=== PATIENT | male | born 1935 | race Caucasian/White ===

== ENCOUNTER 2018-10-27 22:25 | Emergency (ER) | payer MEDICARE, OTHER ==
[2018-10-27 22:30] VITALS: BP 121/95
--- NOTE | 2018-10-27 22:56 | EDM.PDOC ---
ED HPI GENERAL MEDICAL PROBLEM - General Chief Complaint: Genitourinary Problem Stated Complaint: TROUBLE URINATING Time Seen by Provider: 10/27/18 22:55 Source of Information: Reports: Patient History Limitations: Reports: No Limitations - History of Present Illness INITIAL COMMENTS - FREE TEXT/NARRATIVE: been urinating red today. denies dysuria. - Related Data Allergies Allergy/AdvReac Type Severity Reaction Status Date / Time aspirin Allergy Bleeding Verified 10/27/18 22:53 celecoxib Allergy Nausea and Verified 10/27/18 22:53 Vomiting meperidine HCl [From Demerol] Allergy Anaphylactic Verified 10/27/18 22:53 Shock oxycodone Allergy Stomach Verified 10/27/18 22:53 Upset rofecoxib Allergy Stomach Verified 10/27/18 22:53 Upset Home Meds: Home Meds Digoxin 125 mcg PO DAILY 03/10/15 [History] Metoprolol Succinate 25 mg PO BID 03/10/15 [History] Omeprazole 20 mg PO BID 03/10/15 [History] Acetaminophen [Tylenol Extra Strength] 1 tab PO Q6HR PRN 05/06/15 [History] Aspirin [Ecotrin] 81 mg PO DAILY 05/06/15 [History] Calcium Carbonate/Vitamin D3 [Calcium 250+D] 2 tab PO TID 05/06/15 [History] Finasteride 1 tab PO DAILY 05/06/15 [History] Ipratropium [Atrovent 0.06% Nasal [place]] 2 spray JAEL ASDIRECTED PRN 05/06/15 [ History] Melatonin/Pyridoxine HCl (B6) [Melatonin 3 mg Tablet] 9 mg PO BEDTIME 05/06/15 [ History] Verapamil [Calan] 80 mg PO TID 05/06/15 [History] Warfarin [Coumadin] 5 mg PO ASDIRECTED 05/06/15 [History] Cetirizine [ZyrTEC] 1 tab PO DAILY 07/16/15 [History] Amoxicillin 1 tab PO Q8H 07/21/15 [History] Past Medical History HEENT History: Reports: Allergic Rhinitis, Cataract, Hard of Hearing, Other ( See Below) Other HEENT History: WEARS BILAT HEARING AIDES Cardiovascular History: Reports: Afib, Hypertension, Other (See Below) Other Cardiovascular History: PERIPHERAL EDEMA Respiratory History: Reports: Other (See Below) Other Respiratory History: Hx of Bronchoscopy. Hx of Lung BX. 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 Oxygen and melatonin help this. last cluster headache lasted 8 months. Psychiatric History: Reports: None Endocrine/Metabolic History: Reports: Osteoporosis Hematologic History: Reports: None Other Hematologic History: due to bleeding ulcers had a total of 17 pints in the 1970s Immunologic History: Reports: None Oncologic (Cancer) History: Reports: None Other Dermatologic History: Actinic dermatitis - Past Surgical History HEENT Surgical History: Reports: Cataract Surgery Respiratory Surgical History: Reports: Lung Biopsies, Other (See Below) GI Surgical History: Reports: Cholecystectomy, Other (See Below) Other Male Surgeries/Procedures: Cystourthroscopy Social & Family History - Tobacco Use Smoking Status *Q: Current Every Day Smoker Years of Tobacco use: 60 Packs/Tins Daily: 10 - Caffeine Use Caffeine Use: Reports: Other Caffeine Use Comment: decaff drinks - Recreational Drug Use Recreational Drug Use: No ED ROS GENERAL - Review of Systems Review Of Systems: ROS reveals no pertinent complaints other than HPI. ED EXAM, RENAL/ - Physical Exam Exam: See Below Exam Limited By: No Limitations General Appearance: Alert, WD/WN, No Apparent Distress Ears: Hearing Grossly Normal Throat/Mouth: Normal Voice, No Airway Compromise Head: Atraumatic Neck: Non-Tender, Full Range of Motion Respiratory/Chest: No Respiratory Distress Cardiovascular: Regular Rate, Rhythm GI/Abdominal: Soft, Non-Tender Neurological: Alert, Oriented, Normal Cognition, Normal Gait, No Motor/Sensory Deficits Psychiatric: Normal Affect, Normal Mood Skin Exam: Warm, Dry, Normal Color Lymphatic: No Adenopathy Course - Vital Signs Last Recorded V/S: Last Vital Signs Temp 36.3 C 10/27/18 22:28 Pulse 68 10/27/18 22:28 Resp 18 10/27/18 22:28 BP 121/95 H 10/27/18 22:28 Pulse Ox 100 10/27/18 22:28 - Orders/Labs/Meds Labs: Laboratory Tests 10/27/18 Range/Units 22:45 Urine Color Red (YELLOW) Urine Appearance Cloudy (CLEAR) Urine pH 6.0 (5.0-9.0) Ur Specific [place] 1.020 (1.005-1.030) Urine Protein 100 H (NEGATIVE) Urine Glucose (UA) Negative (NEGATIVE) Urine Ketones Trace H (NEGATIVE) Urine Occult Blood Large H (NEGATIVE) Urine Nitrite Negative (NEGATIVE) Urine Bilirubin Small H (NEGATIVE) Urine Urobilinogen 4.0 H (0.2-1.0) mg/dL Ur Leukocyte Esterase Negative (NEGATIVE) Urine RBC Packed H /HPF Urine WBC 0-5 (0-5/HPF) /HPF Ur Epithelial Cells Few /HPF Urine Bacteria Moderate H (0-FEW/HPF) /HPF - Re-Assessments/Exams Free Text/Narrative Re-Assessment/Exam: 10/27/18 23:14 results discussed wit pt who had this before and will call his urologist Tuesday. Departure - Departure Time of Disposition: 23:15 Disposition: Home, Self-Care 01 Condition: Good Clinical Impression: Hematuria syndrome - Discharge Information Instructions: Hematuria, Adult Forms: ED Department Discharge Additional Instructions: 1) rest 2) drink lots of liquids flush bladder 3) call Urologist Tuesday 4) recheck if there is any change or concern
== END 2018-10-27 23:20 | disposition home or self-care (01) ==
LOC: DL.ED 22:25
DX: R31.9 Hematuria, unspecified (principal); I10 Essential (primary) hypertension; F17.210 Nicotine dependence, cigarettes, uncomplicated; Z88.8 Allergy status to other drugs, medicaments and biological substances; Z79.899 Other long term (current) drug therapy; Z79.82 Long term (current) use of aspirin
CPT/HCPCS: 81001; 99283

== ENCOUNTER → 2018-11-30 | Outpatient (CLI) | payer MEDICARE, OTHER ==
[~2018-11-30] MED LIST: Barium Sulfate w/v 2.1% Oral Susp 450 ML Bottle PO ONE; Iopamidol 612 MG/ML 100 ML Bottle IVPUSH ONE
--- NOTE | 2018-11-30 11:11 | CT ---
CLINICAL HISTORY: 83-year-old 170 pound male smoker with atrial fibrillation, "kidney stones" and now hematuria (appendectomy; cholecystectomy; gastroesophageal juncture surgery). "Abnormal prostate gland" reported on CT exam 26 August 2014 exam but "no nephrolithiasis" noted. SCAN TECHNIQUE: Volume acquisition of data from the abdomen and pelvis (kidneys/ureters/bladder) obtained after oral ingestion 2 bottles of Redicat barium and before/during/after the intravenous infusion 100 cc nonionic Isovue contrast (3 cc/s via injector) while the patient was lying supine on the Siemens multislice scanner [place], [place]. All data archived in the PACS system for storage, reformatting and study. INTERPRETATION: 1. *Enlarged, inhomogeneously dense prostate gland with bilobed mass effect elevating trigone, base of the urinary bladder. Thickened bladder wall consistent with chronic outlet obstruction. No intraluminal urinary bladder stones. No mucosal wall mass. 2. Densely calcified "cast" normal caliber distal abdominal aorta and major branches common iliac arteries. No aneurysms. 3. Normal reniform size, axis and configuration bilaterally. No cortical mass. No sign of urolithiasis or obstructive uropathy. 4. No pelvic or abdominal mass lesion, mesenteric or retroperitoneal lymphadenopathy, inflammatory "dirty" peritoneal fat, ventral wall hernia or signs of mechanical bowel obstruction. No ascites or free intraperitoneal air. Normal terminal ileum. 5. Surgical clips gallbladder fossa. Liver, stomach, spleen, pancreas unremarkable. Hypertrophic marginal spondylosis spine. 6. Normal cardiac silhouette. Patchy atelectasis but lung bases otherwise clear, i.e., no parenchymal mass or lobar infiltrate. CONCLUSION: Abnormal prostate gland. No sign of urolithiasis or obstructive uropathy.
== END ==
LOC: DL.CT 07:50
PROVIDERS: ATTEND Physician Assistant
DX: R31.0 Gross hematuria (principal); N42.9 Disorder of prostate, unspecified
CPT/HCPCS: 74178; Q9967

== ENCOUNTER 2021-06-10 13:04 | Emergency (ER) | payer MEDICARE, OTHER ==
[2021-06-10 14:18] VITALS: BP 131/65; PULSE 46
[2021-06-10] MEDS ORDERED: Sodium Chloride 0.9% 10 ML Syringe FLUSH PRN ×2 (15:06→15:09)
[2021-06-10] MEDS ORDERED: Sodium Chloride 0.9% 1,000 ML IV ONE (15:10)
--- NOTE | 2021-06-10 15:32 | EDM.PDOC ---
ED HPI GENERAL MEDICAL PROBLEM - General Chief Complaint: Syncope Stated Complaint: LIGHT HEADED / NAUSEOUS / VERY WEAK Time Seen by Provider: 06/10/21 15:00 Source of Information: Reports: Patient History Limitations: Reports: No Limitations - History of Present Illness INITIAL COMMENTS - FREE TEXT/NARRATIVE: 85 y/o M c/o dizziness this morning that began around 930am. Pt reports he was having coffee at his table and when he stood up he noticed to room began spinning. The pt sat down and his symptoms went away. He again tried to get up minutes later and his dizziness returned. The pt states it feels like the room in spinning. He was able to drive himself to the hospital. No similar symptoms in the past. He reports he has not been drinking water much and prefers coffee. He denies new meds, drugs, etoh, cp, fernandes, neck pn, abd pn, diff voiding, constipation. - Related Data Allergies Allergy/AdvReac Type Severity Reaction Status Date / Time amoxicillin [From Augmentin] Allergy Diarrhea Verified 06/10/21 14:19 aspirin Allergy Bleeding Verified 06/10/21 14:19 celecoxib Allergy Nausea and Verified 06/10/21 14:19 Vomiting clavulanic acid Allergy Diarrhea Verified 06/10/21 14:19 [From Augmentin] meperidine HCl [From Demerol] Allergy Anaphylactic Verified 06/10/21 14:19 Shock oxycodone Allergy Stomach Verified 06/10/21 14:19 Upset rofecoxib Allergy Stomach Verified 06/10/21 14:19 Upset Home Meds: Home Meds Digoxin 125 mcg PO DAILY 03/10/15 [History] Metoprolol Succinate 25 mg PO BID 03/10/15 [History] Omeprazole 20 mg PO BID 03/10/15 [History] Acetaminophen [Tylenol Extra Strength] 1 tab PO Q6HR PRN 05/06/15 [History] Aspirin [Ecotrin] 81 mg PO DAILY 05/06/15 [History] Calcium Carbonate/Vitamin D3 [Calcium 250+D] 2 tab PO TID 05/06/15 [History] Finasteride 1 tab PO DAILY 05/06/15 [History] Ipratropium [Atrovent 0.06% Nasal [place]] 2 spray JAEL ASDIRECTED PRN 05/06/15 [History] Melatonin/Pyridoxine HCl (B6) [Melatonin 3 mg Tablet] 9 mg PO BEDTIME 05/06/15 [History] Verapamil [Calan] 80 mg PO TID 05/06/15 [History] Warfarin [Coumadin] 5 mg PO .[id number] 05/06/15 [History] Cetirizine [ZyrTEC] 1 tab PO DAILY 07/16/15 [History] Amoxicillin 1 tab PO Q8H 07/21/15 [History] Past Medical History HEENT History: Reports: Allergic Rhinitis, Cataract, Hard of Hearing, Other (See Below) Other HEENT History: WEARS BILAT HEARING AIDES Cardiovascular History: Reports: Afib, Hypertension, Other (See Below) Other Cardiovascular History: PERIPHERAL EDEMA Respiratory History: Reports: Other (See Below) Other Respiratory History: Hx of Bronchoscopy. Hx of Lung BX. 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 Oxygen and melatonin help this. last cluster headache lasted 8 months. Psychiatric History: Reports: None Endocrine/Metabolic History: Reports: Osteoporosis Hematologic History: Reports: None Other Hematologic History: due to bleeding ulcers had a total of 17 pints in the 1970's Immunologic History: Reports: None Oncologic (Cancer) History: Reports: None Other Dermatologic History: Actinic dermatitis - Past Surgical History HEENT Surgical History: Reports: Cataract Surgery Respiratory Surgical History: Reports: Lung Biopsies, Other (See Below) GI Surgical History: Reports: Cholecystectomy, Other (See Below) Other Male Surgeries/Procedures: Cystourthroscopy Social & Family History - Caffeine Use Caffeine Use: Reports: Other Caffeine Use Comment: decaff drinks ED ROS GENERAL - Review of Systems Review Of Systems: Comprehensive ROS is negative, except as noted in HPI. ED EXAM, DIZZINESS - Physical Exam Exam: See Below General Appearance: Alert, No Apparent Distress Eye Exam: Bilateral Eye: PERRL Ears: Normal External Exam, Normal Canal, Normal TMs Nose: Normal Inspection, Normal Mucosa, No Blood Throat/Mouth: Other (tongue dry and furrowed) Head Exam: Atraumatic, Normocephalic Neck: Supple, Non-Tender Respiratory/Chest: No Respiratory Distress, Lungs Clear, Normal Breath Sounds Cardiovascular: Normal Peripheral Pulses, Regular Rate, Rhythm, No Edema, No Gallop, No JVD, No Murmur, No Rub GI/Abdominal: Soft, Non-Tender (Male) Exam: Deferred Rectal (Males) Exam: Deferred Neurological: Alert, Normal Mood/Affect, Normal Dorsiflexion, CN II-XII Intact, Normal Plantar Flexion, Normal Gait, Normal Reflexes, No Motor/Sensory Deficits, Oriented x 3 Back Exam: Normal Inspection, Full Range of Motion, NT Extremities: Normal Inspection, Normal Range of Motion, Non-Tender, No Pedal Edema, Normal Capillary Refill Psychiatric: Normal Affect, Normal Mood Skin Exam: Warm, Dry, Intact #1 Interpretation EKG Date: 06/10/21 Time: 16:30 Rhythm: A-Fib [place]: Normal P-Wave: Absent ST-T: Normal QT: Normal Course - Vital Signs Last Recorded V/S: Last Vital Signs Temp 97.8 F 06/10/21 14:09 Pulse 46 L 06/10/21 14:09 Resp 20 06/10/21 14:09 BP 131/65 06/10/21 14:09 Pulse Ox 99 06/10/21 14:09 Orthostatic Blood Pressure [ 117/49 Standing] Orthostatic Blood Pressure [ 115/51 Sitting] - Orders/Labs/Meds Orders: Active Orders 24 hr Category Date Time Status CORONAVIRUS COVID-19 FRANKY [MOLEC] Stat Lab 06/10/21 15:08 Ordered UA RFX JADA AND CULT IF INDIC [URIN] Stat Lab 06/10/21 15:07 Ordered Peripheral IV Insertion Adult [OM.PC] Routine Oth 06/10/21 15:07 Ordered Peripheral IV Insertion Adult [OM.PC] Routine Oth 06/10/21 15:08 Ordered Labs: Laboratory Tests 06/10/21 06/10/21 06/10/21 Range/Units 15:17 15:17 15:17 WBC 4.9 L (5.0-10.0) 10^3/uL RBC 3.83 L (4.6-6.2) 10^6/uL Hgb 11.9 L (14.0-18.0) g/dL Hct 36.1 L (40.0-54.0) % MCV 94.3 (80-100) fL MCH 31.1 (27.0-34.0) pg MCHC 33.0 (33.0-35.0) g/dL Plt Count 184 (150-450) 10^3/uL Neut % (Auto) 65.9 (42.2-75.2) % Lymph % (Auto) 25.6 (20.5-50.1) % [place] % (Auto) 7.3 (2-8) % Eos % (Auto) 1.0 (1.0-3.0) % Baso % (Auto) 0.2 (0.0-1.0) % PT 20.1 H D (9.0-12.0) SEC INR 2.0 H (0.9-1.2) Sodium 141 (136-145) mmol/L Potassium 4.5 (3.5-5.1) mmol/L Chloride 103 (98-107) mmol/L Carbon Dioxide 27 (21-32) mmol/L Anion Gap 15.5 H (7-13) mEq/L BUN 16 (7-18) mg/dL Creatinine 0.91 (0.70-1.30) mg/dL Est Cr Clr Drug Dosing 61.49 mL/min Estimated GFR (MDRD) > 60 BUN/Creatinine Ratio 17.6 (No establ ref range) Glucose 92 (70-99) mg/dL Calcium 8.7 (8.5-10.1) mg/dL Phosphorus 3.5 (2.6-4.7) mg/dL Magnesium 2.3 (1.8-2.4) mg/dL Total Bilirubin 0.6 (0.2-1.0) mg/dL AST 18 (15-37) U/L ALT 24 (16-63) U/L Alkaline Phosphatase 76 (46-116) U/L C-Reactive Protein < 0.2 (0.0-0.9) mg/dL Total Protein 7.0 (6.4-8.2) g/dL Albumin 3.9 (3.4-5.0) g/dL Globulin 3.1 Albumin/Globulin Ratio 1.3 TSH, Ultra Sensitive 1.97 (0.36-3.74) uIU/mL Digoxin (0.9-2.0) ng/mL 06/10/21 Range/Units 15:17 WBC (5.0-10.0) 10^3/uL RBC (4.6-6.2) 10^6/uL Hgb (14.0-18.0) g/dL Hct (40.0-54.0) % MCV (80-100) fL MCH (27.0-34.0) pg MCHC (33.0-35.0) g/dL Plt Count (150-450) 10^3/uL Neut % (Auto) (42.2-75.2) % Lymph % (Auto) (20.5-50.1) % [place] % (Auto) (2-8) % Eos % (Auto) (1.0-3.0) % Baso % (Auto) (0.0-1.0) % PT (9.0-12.0) SEC INR (0.9-1.2) Sodium (136-145) mmol/L Potassium (3.5-5.1) mmol/L Chloride (98-107) mmol/L Carbon Dioxide (21-32) mmol/L Anion Gap (7-13) mEq/L BUN (7-18) mg/dL Creatinine (0.70-1.30) mg/dL Est Cr Clr Drug Dosing mL/min Estimated GFR (MDRD) BUN/Creatinine Ratio (No establ ref range) Glucose (70-99) mg/dL Calcium (8.5-10.1) mg/dL Phosphorus (2.6-4.7) mg/dL Magnesium (1.8-2.4) mg/dL Total Bilirubin (0.2-1.0) mg/dL AST (15-37) U/L ALT (16-63) U/L Alkaline Phosphatase (46-116) U/L C-Reactive Protein (0.0-0.9) mg/dL Total Protein (6.4-8.2) g/dL Albumin (3.4-5.0) g/dL Globulin Albumin/Globulin Ratio TSH, Ultra Sensitive (0.36-3.74) uIU/mL Digoxin 1.3 (0.9-2.0) ng/mL Meds: Medications Discontinued Medications Generic Name Dose Route Start Last Admin Trade Name Freq PRN Reason Stop Dose Admin Sodium Chloride 1,000 mls @ 999 mls/hr 06/10/21 15:10 06/10/21 16:04 Normal Saline IV 06/10/21 16:10 999 mls/hr .BOLUS ONE Administration Sodium Chloride 10 ml 06/10/21 15:06 Sodium Chloride 0.9% 10 Ml Syringe FLUSH ASDIRECTED PRN Keep Vein Open Sodium Chloride 10 ml 06/10/21 15:09 Sodium Chloride 0.9% 10 Ml Syringe FLUSH ASDIRECTED PRN Keep Vein Open - Re-Assessments/Exams Free Text/Narrative Re-Assessment/Exam: 06/10/21 17:13 The pt feels much better after fluids and does not get dizzy while ambulating. I advised him of the lab, exam and EKG and of the findings. I informed him no discernable cause of his dizziness could be determined. Given the negative work up it is possible that the pt was experiencing dehydration which was causing his dizziness. Departure - Departure Time of Disposition: 17:16 Disposition: Home, Self-Care 01 Condition: Good Clinical Impression: Dizziness, Dehydration - Discharge Information *PRESCRIPTION DRUG MONITORING PROGRAM REVIEWED*: Not Applicable *COPY OF PRESCRIPTION DRUG MONITORING REPORT IN PATIENT KARY: Not Applicable Instructions: Dizziness, [id number], Dehydration, Elderly, [id number] Forms: ED Department Discharge Additional Instructions: Drink plenty of fluids to maintain hydration. If any new symptoms or concerns develop contact your primary care facility or return to the ER. Sepsis Event Note (ED) - Evaluation Sepsis Screening Result: No Definite Risk - Focused Exam Vital Signs: Vital Signs Temp Pulse Resp BP Pulse Ox 06/10/21 14:09 97.8 F 46 L 20 131/65 99 - My Orders Last 24 Hours: My Active Orders 06/10/21 15:07 UA RFX JADA AND CULT IF INDIC [URIN] Stat Peripheral IV Insertion Adult [OM.PC] Routine 06/10/21 15:08 CORONAVIRUS COVID-19 FRANKY [MOLEC] Stat Peripheral IV Insertion Adult [OM.PC] Routine - Assessment/Plan Last 24 Hours: My Active Orders 06/10/21 15:07 UA RFX JADA AND CULT IF INDIC [URIN] Stat Peripheral IV Insertion Adult [OM.PC] Routine 06/10/21 15:08 CORONAVIRUS COVID-19 FRANKY [MOLEC] Stat Peripheral IV Insertion Adult [OM.PC] Routine
[2021-06-10 15:51] LABS: ANION GAP 15.5 mEq/L (7-13); CHLORIDE,CL 103 mmol/L (98-107); SODIUM,NA 141 mmol/L (136-145)
== END 2021-06-10 17:32 | disposition home or self-care (01) ==
LOC: DL.ED 13:04
DX: E86.0 Dehydration (principal); I48.91 Unspecified atrial fibrillation; I10 Essential (primary) hypertension; M19.90 Unspecified osteoarthritis, unspecified site; Z88.0 Allergy status to penicillin; Z88.6 Allergy status to analgesic agent; Z88.1 Allergy status to other antibiotic agents; Z88.5 Allergy status to narcotic agent; Z79.82 Long term (current) use of aspirin; Z79.899 Other long term (current) drug therapy
CPT/HCPCS: 36415; 80053; 80162; 83735; 84100; 84443; 85025; 85610; 86140; 93005; 99284; J7030

== ENCOUNTER 2022-11-21 13:06 | Emergency (ER) | payer MEDICARE, OTHER ==
[2022-11-21 13:17] VITALS: BP 171/75; PULSE 107
== END 2022-11-21 14:32 | disposition home or self-care (01) ==
LOC: DL.ED 13:06
DX: M25.461 Effusion, right knee (principal); M11.261 Other chondrocalcinosis, right knee; M17.11 Unilateral primary osteoarthritis, right knee; F17.210 Nicotine dependence, cigarettes, uncomplicated; I48.91 Unspecified atrial fibrillation; I10 Essential (primary) hypertension; Z79.01 Long term (current) use of anticoagulants; Z79.82 Long term (current) use of aspirin; Z79.899 Other long term (current) drug therapy; Z88.8 Allergy status to other drugs, medicaments and biological substances; Z88.5 Allergy status to narcotic agent; Z88.6 Allergy status to analgesic agent; Z88.1 Allergy status to other antibiotic agents; Z88.0 Allergy status to penicillin
CPT/HCPCS: 99283

== ENCOUNTER 2023-03-20 05:23 | Inpatient (IN) | payer MEDICARE, OTHER ==
[2023-03-20] MEDS ORDERED: Albuterol/Ipratropium 3.0-0.5 MG/3 ML Neb Soln NEB ONE (05:43)
[2023-03-20 05:57] LABS: BASOPHILS PERCENT AUTO 0.6 % (0.0-1.0); EOSINOPHILS PERCENT AUTO 6.4 % (1.0-3.0); HEMATOCRIT 36.7 % (40.0-54.0); HEMOGLOBIN 12.4 g/dL (14.0-18.0); LYMPHOCYTES PERCENT AUTO 22.5 % (20.5-50.1); MEAN CORPUSCULAR HEMOGLOBIN 31.3 pg (27.0-34.0); MEAN CORPUSCULAR HGB CONC 33.8 g/dL (33.0-35.0); MEAN CORPUSCULAR VOLUME 92.7 fL (80-100); MONOCYTES PERCENT AUTO 6.1 % (2-8); NEUTROPHILS PERCENT AUTO 64.4 % (42.2-75.2); PLATELET COUNT,PLT 189 10^3/uL (150-450); RED BLOOD CELL COUNT 3.96 10^6/uL (4.6-6.2); WHITE BLOOD CELL COUNT,WBC 4.9 10^3/uL (5.0-10.0)
[2023-03-20] MEDS ORDERED: Albuterol/Ipratropium 3.0-0.5 MG/3 ML Neb Soln ONE ×2 (05:57→06:17)
[2023-03-20 06:21] LABS: A/G RATIO 1.3; ALBUMIN 3.9 g/dL (3.4-5.0); ANION GAP 12.8 mEq/L (7-13); BILIRUBIN TOTAL 0.5 mg/dL (0.2-1.0); BUN/CREATININE RATIO 15.5 (No establ ref range); C-REACTIVE PROTEIN 0.45 ng/dL (<=0.30); CREATININE 0.84 mg/dL (0.70-1.30); EST CRCL DRUG DOSING (CG) 60.87 mL/min; POTASSIUM,K 3.8 mmol/L (3.5-5.1); PROTEIN TOTAL,TP 6.9 g/dL (6.4-8.2)
[2023-03-20 06:41] LABS: INR 1.8 (0.9-1.2); PROTHROMBIN TIME 18.1 SEC (9.0-12.0)
[2023-03-20] MEDS ORDERED: Azithromycin 250 MG Tab PO ONE (07:01)
[2023-03-20] MEDS ORDERED: Acetaminophen 500 MG Tab PO PRN (10:58)
[2023-03-20] MEDS ORDERED: Warfarin 2 MG Tab PO ONE ×2 (11:00→15:45)
[2023-03-20] MEDS: Albuterol/Ipratropium 3.0-0.5 MG/3 ML Neb Soln NEB PRN ×3 (11:26→21:18)
[2023-03-20] MEDS ORDERED: Acetaminophen 325 MG Tab PO PRN (11:41)
[2023-03-20] MEDS ORDERED: Zolpidem 5 MG Tab PO PRN (11:41)
[2023-03-20] MEDS ORDERED: Ondansetron 4 MG Tab.DIS PO PRN (11:41)
[2023-03-20] MEDS ORDERED: prednisoLONE Acetate 1% Ophth Susp 5 ML Bottle EYELF SCH (13:00)
[2023-03-20] MEDS: Finasteride 5 MG Tab PO SCH (14:48)
[2023-03-20] MEDS: Digoxin 125 MCG Tab PO SCH (14:48)
[2023-03-20] MEDS: methylPREDNISolone Sodium Succinate 125 MG/2 ML SDV IVPUSH SCH ×2 (14:50→18:13)
[2023-03-20] MEDS ORDERED: Warfarin 5 MG Tab PO ONE (15:45)
[2023-03-20] MEDS: Formoterol/Mometasone 200-5 MCG 8.8 GM Inhaler IH SCH (17:50)
[2023-03-20] MEDS: Metoprolol Succinate 25 MG Tab.ER PO SCH (21:10)
[2023-03-20] MEDS: Melatonin 3 MG Tab PO SCH (21:11)
[2023-03-20] MEDS ORDERED: Sodium Chloride 0.9% 10 ML Syringe FLUSH PRN (21:13)
[2023-03-21] MEDS: methylPREDNISolone Sodium Succinate 125 MG/2 ML SDV IVPUSH SCH ×3 (03:11→21:30)
[2023-03-21] MEDS: Albuterol/Ipratropium 3.0-0.5 MG/3 ML Neb Soln NEB PRN ×4 (06:03→17:20)
[2023-03-21] MEDS: Formoterol/Mometasone 200-5 MCG 8.8 GM Inhaler IH SCH ×2 (06:04→17:21)
[2023-03-21 06:19] LABS: HEMATOCRIT 36.5 % (40.0-54.0); HEMOGLOBIN 12.4 g/dL (14.0-18.0); MEAN CORPUSCULAR HEMOGLOBIN 31.4 pg (27.0-34.0); MEAN CORPUSCULAR VOLUME 92.4 fL (80-100); RED BLOOD CELL COUNT 3.95 10^6/uL (4.6-6.2); WHITE BLOOD CELL COUNT,WBC 4.6 10^3/uL (5.0-10.0)
[2023-03-21 06:31] LABS: PROTHROMBIN TIME 20.1 SEC (9.0-12.0)
[2023-03-21 06:32] LABS: ANION GAP 14.7 mEq/L (7-13); CALCIUM 9.2 mg/dL (8.5-10.1); CREATININE 0.92 mg/dL (0.70-1.30); EST CRCL DRUG DOSING (CG) 54.62 mL/min; POTASSIUM,K 4.7 mmol/L (3.5-5.1)
[2023-03-21] MEDS ORDERED: Non-Formulary Medication 1 Each (Cetirizine [Zyrtec] 10 MG Tablet) PO SCH (09:00)
[2023-03-21] MEDS: Digoxin 125 MCG Tab PO SCH (09:45)
[2023-03-21] MEDS: Azithromycin 250 MG Tab PO SCH (09:45)
[2023-03-21] MEDS: Aspirin 81 MG Tab.EC PO SCH (09:45)
[2023-03-21] MEDS: Metoprolol Succinate 25 MG Tab.ER PO SCH ×2 (09:46→21:32)
[2023-03-21] MEDS: Finasteride 5 MG Tab PO SCH (09:47)
[2023-03-21] MEDS ORDERED: Warfarin 5 MG Tab PO ONE (14:30)
[2023-03-21] MEDS: Melatonin 3 MG Tab PO SCH (21:32)
[2023-03-22] MEDS: methylPREDNISolone Sodium Succinate 125 MG/2 ML SDV IVPUSH SCH ×2 (03:49→11:04)
[2023-03-22] MEDS: Albuterol/Ipratropium 3.0-0.5 MG/3 ML Neb Soln NEB PRN ×2 (06:05→09:59)
[2023-03-22] MEDS: Formoterol/Mometasone 200-5 MCG 8.8 GM Inhaler IH SCH (06:08)
[2023-03-22 07:20] LABS: INR 3.2 (0.9-1.2); PROTHROMBIN TIME 31.8 SEC (9.0-12.0)
[2023-03-22] MEDS: Finasteride 5 MG Tab PO SCH (08:30)
[2023-03-22] MEDS: Aspirin 81 MG Tab.EC PO SCH (08:30)
[2023-03-22] MEDS: Metoprolol Succinate 25 MG Tab.ER PO SCH (08:31)
[2023-03-22] MEDS: Digoxin 125 MCG Tab PO SCH (08:31)
[2023-03-22] MEDS: Azithromycin 250 MG Tab PO SCH (08:31)
[2023-03-22] MEDS ORDERED: Warfarin 5 MG Tab PO SCH ×2 (14:00)
[2023-03-22 14:10] VITALS: BP 112/71; PULSE 74
[2023-03-23] MEDS ORDERED: Warfarin 5 MG Tab PO SCH ×2 (14:00)
== END 2023-03-22 13:20 | disposition home or self-care (01) | DRG 192 ==
LOC: DL.ED 05:23 → DL.MS 07:15
PROVIDERS: ADMIT Hospitalist; ATTEND Hospitalist
DX: J44.1 Chronic obstructive pulmonary disease with (acute) exacerbation (principal); R79.1 Abnormal coagulation profile; I48.91 Unspecified atrial fibrillation; F17.210 Nicotine dependence, cigarettes, uncomplicated; I10 Essential (primary) hypertension; N40.0 Benign prostatic hyperplasia without lower urinary tract symptoms; Z20.822 Contact with and (suspected) exposure to COVID-19; Z87.891 Personal history of nicotine dependence; M19.90 Unspecified osteoarthritis, unspecified site; Z88.1 Allergy status to other antibiotic agents; Z88.8 Allergy status to other drugs, medicaments and biological substances; Z79.01 Long term (current) use of anticoagulants; Z79.82 Long term (current) use of aspirin; Z79.899 Other long term (current) drug therapy; Z79.2 Long term (current) use of antibiotics; Z98.84 Bariatric surgery status; Z90.49 Acquired absence of other specified parts of digestive tract
CPT/HCPCS: 36415; 71045; 80048; 80053; 80162; 83880; 84484; 85025; 85027; 85379; 85610; 86140; 87804; 93005; 93010; 94060; 94640; 94668; 99284; 99285; A9270-GY; J2930; J3490; J7620-GY; U0002